=== PATIENT | male | born 1980 | race Caucasian/White ===

== ENCOUNTER → 2016-11-06 | Outpatient (CLI) | payer OTHER ==
[~2016-11-06] MED LIST: CLAR1TAB2 PO; GABA300C3 PO; LIDO5DIS36 TD; MELO7.5T6 PO; MULT1CHW26 PO
--- NOTE | 2016-11-10 01:51 | ECWPNPC ---
PATIENT NAME: KELLEE DOLAN : 1980 GENDER: MALE VISIT DATE: 11/06/2016 DISCHARGE DATE: 11/06/16 1523 VISIT LOCKED DATE TIME: PHYSICIAN: KINGSLEY COELLO RESOURCE: KINGSLEY COELLO REASON FOR APPOINTMENT 1. SPINE HISTORY OF PRESENT ILLNESS HISTORY OF PRESENT ILLNESS: HERE FOR ROUTINE F/U AND MANAGEMENT OF CHRONIC LEFT LOW BACK PAIN.RATING PAIN VAS 0/10.ABLE TO CONTINUE WITH CROSS FIT EXCERSISE.DESCRIBES PAIN INTERMITTENT SORENESS AND SHOOTING PAIN.PAIN IS AGGREVATED BY PROLONGED SITTING.PAIN RELIEVED BY STRETCHING SND REST.CURRENTLY TAKING MELOXICAM 7.5MG AND GABAPENTIN 300MG AT HS. FALL RISK SCREENING: SCREENING :NO FALLS IN THE PAST YEAR CURRENT MEDICATIONS TAKING MULTIVITAMIN 1 TABLET CHEWABLE 1 TAB(S) ORALLY DAILY TAKING CLARITIN 10 MG TABLET 1 TABLET ORALLY ONCE A DAY TAKING ZOLOFT 75 MG TABLET 1 TABLET ORALLY ONCE A DAY TAKING HYDROXYZINE HCL 10 MG TABLET ORALLY AT BEDTIME TAKING GABAPENTIN 300 MG CAPSULE 1 CAPSULE ORALLY QHS TAKING MELOXICAM 7.5 MG TABLET 1 TABLET ORALLY ONCE A DAY NOT-TAKING CITRACAL + D 250-62.5 MG-UNIT TABLET 1 TABLET ORALLY DAILY NOT-TAKING NEXIUM 40 MG CAPSULE DELAYED RELEASE 1 CAPSULE ORALLY ONCE A DAY MEDICATION LIST REVIEWED AND RECONCILED WITH THE PATIENT PAST MEDICAL HISTORY GERD LOW BACK PAIN ALLERGIES HAY FEVER SOCIAL HISTORY GENERAL: PAIN CLINIC PFS, CLERGY, PUBLIC HEALTH REFERRALS CLERGY REFERRAL NEEDED?NO WAS THE PROVIDER NOTIFIED OF ANY PERTINENT INFO?NO PFS REFERRAL NEEDED?NO PUBLIC HEALTH REFERRAL NEEDED?NO PATIENT: ____. REVIEW OF SYSTEMS CONSTITUTIONAL: ANY CHANGE IN YOUR MEDICAL CONDITION? NO . CHILLS NO . FEVER NO . INFECTION: DO YOU HAVE NEW INFECTIONS? NO . DO YOU HAVE HISTORY OF MRSA? NO . MUSCULOSKELETAL: ANY NEW PATTERNS OF PAIN OR NUMBNESS? NO . GASTROENTEROLOGY: ANY NEW CHANGE IN BOWEL CONTROL? NO . GENITOURINARY: ANY NEW CHANGE IN BLADDER CONTROL? NO . IS THERE A CHANCE YOU COULD BE ? NO . HEMATOLOGY/LYMPH: DO YOU TAKE ANY BLOOD THINNERS? (FOR EXAMPLE- COUMADIN, PLAVIX, AGGRENOX, PLATEL, PRADAXA, OR XARELTO) NO . WHEN WAS YOUR LAST DOSE? DATE: TIME: . NEUROLOGY: HAVE YOU FALLEN IN THE PAST 6 MONTHS? NO . ANY NEW EXTREMITY NUMBNESS OR WEAKNESS? NO . CARDIOLOGY: DO YOU HAVE A PACEMAKER OR DEFIBRILLATOR? NO . RESPIRATORY: HAVE YOU BEEN SICK IN THE PAST WEEK? NO . FEVER NO . FLU LIKE SYMPTOMS? NO . COUGH NO . INTEGUMENTARY: DO YOU HAVE ANY RASHES OR OPEN SORES? NO . ALLERGIC/IMMUNO: ARE YOU ALLERGIC TO SHELLFISH OR IV DYE? NO . ANY NEW ALLERGIES? NO . PSYCHIATRIC: DO YOU HAVE THOUGHTS OF HURTING YOURSELF OR SOMEONE ELSE? NO . ARE YOU ABUSED, NEGLECTED, OR IN AN UNSAFE ENVIRONMENT? NO . ENDOCRINOLOGY: ARE YOU DIABETIC? NO . OTHER: DO YOU NEED ANY PRESCRIPTIONS? NO . IF YES, PLEASE LIST: ____ . ANY NEW PROBLEMS WITH YOUR MEDICATIONS? NO . WHEN DID YOU LAST EAT? ____ . WHEN DID YOU LAST DRINK? ____ . WHAT DID YOU LAST DRINK? ____ . NAME OF PERSON DRIVING YOU HOME? ____ . DO YOU HAVE ANY OTHER QUESTIONS OR CONCERNS NO . REVIEWED BY: PROVIDER: KINGSLEY BERNAL . VITAL SIGNS WT 198 LBS, HT 70 IN, BMI 28.41 INDEX, BP 132/75 MM HG, HR 61 /MIN, RR 16 /MIN, TEMP 99.6 F, OXYGEN SAT % 94%, NA INITIALS SC14:47. EXAMINATION GENERAL EXAMINATION: LUNGS:LUNG SOUNDS ARE CLEAR. HEART:HEART RATE REGULAR. MUSCULOSKELETAL:*, MUSCLE STRENGTH TESTING 5/5 BILATERAL LOWER EXTREMITIES., PALPATION: NEGATIVE FOR PAIN OVER L/S SPINE. NEGATIVE FOR PAIN OVER L/S PARSPINALS. DIAGNOSTIC: . ASSESSMENTS INTERVERTEBRAL DISC DISORDERS WITH RADICULOPATHY, LUMBOSACRAL REGION - M51.17 (PRIMARY) TREATMENT INTERVERTEBRAL DISC DISORDERS WITH RADICULOPATHY, LUMBOSACRAL REGION CONTINUE GABAPENTIN CAPSULE, 300 MG, 1 CAPSULE, ORALLY, QHS CONTINUE MELOXICAM TABLET, 7.5 MG, 1 TABLET, ORALLY, ONCE A DAY PROCEDURE CODES FA211 ESTABILISHED PATIENT [facility] CHARGE DISPOSITION & COMMUNICATION FOLLOW UP 2 MONTHS ELECTRONICALLY SIGNED BY DOLORES CHISHOLM ON 11/07/2016 AT 02:20 PM EDT DISCLAIMER : THIS IS A VISIT SUMMARY EXTRACTED FROM THE [employer] CHART. IT IS NOT A COPY OF THE [employer] PROGRESS NOTE. MTDD
== END ==
LOC: M PAIN 14:20
PROVIDERS: ATTEND Nurse Practitioner Family
DX: Z09 Encounter for follow-up examination after completed treatment for conditions other than malignant neoplasm (principal); G89.29 Other chronic pain; M51.17 Intervertebral disc disorders with radiculopathy, lumbosacral region; K21.9 Gastro-esophageal reflux disease without esophagitis; Z79.899 Other long term (current) drug therapy

== ENCOUNTER → 2017-01-04 | Outpatient (CLI) | payer OTHER ==
[~2017-01-04] MED LIST changes: +GABA-282 PO; -GABA300C3 PO
--- NOTE | 2017-01-05 01:16 | ECWPNPC ---
PATIENT NAME: KELLEE DOLAN : 1980 GENDER: MALE VISIT DATE: 01/04/2017 DISCHARGE DATE: 01/04/17 1143 VISIT LOCKED DATE TIME: PHYSICIAN: KINGSELY COELLO RESOURCE: KINGSLEY COELLO REASON FOR APPOINTMENT 1. LOW BACK HISTORY OF PRESENT ILLNESS HISTORY OF PRESENT ILLNESS: HERE FOR F/U AND MANAGEMENT OF CHRONIC LOW BACK PAIN AND LEFT LEG RADICULAR SYMPTOMS.PAIN IS BEGINING TO COME BACK.RATING PAIN VAS 4/10.RESPONDED WELL TO LESI IN PAST. PAIN THE PATIENT DESCRIBES THE PAIN... FALL RISK SCREENING: SCREENING :NO FALLS IN THE PAST YEAR CURRENT MEDICATIONS TAKING MULTIVITAMIN 1 TABLET CHEWABLE 1 TAB(S) ORALLY DAILY TAKING CLARITIN 10 MG TABLET 1 TABLET ORALLY ONCE A DAY TAKING ZOLOFT 75 MG TABLET 1 TABLET ORALLY ONCE A DAY TAKING HYDROXYZINE HCL 10 MG TABLET ORALLY AT BEDTIME TAKING GABAPENTIN 300 MG CAPSULE 1 CAPSULE ORALLY QHS TAKING MELOXICAM 7.5 MG TABLET 1 TABLET ORALLY ONCE A DAY NOT-TAKING CITRACAL + D 250-62.5 MG-UNIT TABLET 1 TABLET ORALLY DAILY NOT-TAKING NEXIUM 40 MG CAPSULE DELAYED RELEASE 1 CAPSULE ORALLY ONCE A DAY MEDICATION LIST REVIEWED AND RECONCILED WITH THE PATIENT PAST MEDICAL HISTORY GERD LOW BACK PAIN ALLERGIES HAY FEVER SURGICAL HISTORY DENIES PAST SURGICAL HISTORY HOSPITALIZATION/MAJOR DIAGNOSTIC PROCEDURE CHICKEN BONE STUCK IN PHARYNX 2015 REVIEW OF SYSTEMS CONSTITUTIONAL: ANY CHANGE IN YOUR MEDICAL CONDITION? NO . CHILLS NO . FEVER NO . INFECTION: DO YOU HAVE NEW INFECTIONS? NO . DO YOU HAVE HISTORY OF MRSA? NO . MUSCULOSKELETAL: ANY NEW PATTERNS OF PAIN OR NUMBNESS? YES, INCREASING IN INTENSITY. PT STATES HE IS LEAVING IN MARCH, WOULD LIKE ANOTHER INJECTION BEFORE LEAVING . GASTROENTEROLOGY: ANY NEW CHANGE IN BOWEL CONTROL? NO . GENITOURINARY: ANY NEW CHANGE IN BLADDER CONTROL? NO . IS THERE A CHANCE YOU COULD BE ? NO . HEMATOLOGY/LYMPH: DO YOU TAKE ANY BLOOD THINNERS? (FOR EXAMPLE- COUMADIN, PLAVIX, AGGRENOX, PLATEL, PRADAXA, OR XARELTO) NO . WHEN WAS YOUR LAST DOSE? DATE: TIME: . NEUROLOGY: HAVE YOU FALLEN IN THE PAST 6 MONTHS? NO . ANY NEW EXTREMITY NUMBNESS OR WEAKNESS? NO . CARDIOLOGY: DO YOU HAVE A PACEMAKER OR DEFIBRILLATOR? NO . RESPIRATORY: HAVE YOU BEEN SICK IN THE PAST WEEK? NO . FEVER NO . FLU LIKE SYMPTOMS? NO . COUGH NO . INTEGUMENTARY: DO YOU HAVE ANY RASHES OR OPEN SORES? NO . ALLERGIC/IMMUNO: ARE YOU ALLERGIC TO SHELLFISH OR IV DYE? NO . ANY NEW ALLERGIES? NO . PSYCHIATRIC: DO YOU HAVE THOUGHTS OF HURTING YOURSELF OR SOMEONE ELSE? NO . ARE YOU ABUSED, NEGLECTED, OR IN AN UNSAFE ENVIRONMENT? NO . ENDOCRINOLOGY: ARE YOU DIABETIC? NO . OTHER: DO YOU NEED ANY PRESCRIPTIONS? NO . IF YES, PLEASE LIST: ____ . ANY NEW PROBLEMS WITH YOUR MEDICATIONS? NO . WHEN DID YOU LAST EAT? ____ . WHEN DID YOU LAST DRINK? ____ . WHAT DID YOU LAST DRINK? ____ . NAME OF PERSON DRIVING YOU HOME? ____ . DO YOU HAVE ANY OTHER QUESTIONS OR CONCERNS NO . REVIEWED BY: PROVIDER: KINGSLEY BERNAL . VITAL SIGNS WT 199.0 LBS, HT 70 IN, BMI 28.55 INDEX, BP 156/84 MM HG, HR 79 /MIN, RR 16 /MIN, TEMP 97.7 F, OXYGEN SAT % 96%, SAFE IN ENV? (Y/N) Y, NA INITIALS TL 1051, REVIEWED BY: EM. EXAMINATION GENERAL EXAMINATION: LUNGS:LUNG SOUNDS ARE CLEAR. HEART:HEART RATE REGULAR. MUSCULOSKELETAL:*, MUSCLE STRENGTH TESTING 5/5 BILATERAL LOWER EXTREMITIES., PALPATION: NEGATIVE FOR PAIN OVER L/S SPINE. NEGATIVE FOR PAIN OVER L/S PARASPINALS. DIAGNOSTIC: . ASSESSMENTS INTERVERTEBRAL DISC DISORDERS WITH RADICULOPATHY, LUMBOSACRAL REGION - M51.17 (PRIMARY) TREATMENT INTERVERTEBRAL DISC DISORDERS WITH RADICULOPATHY, LUMBOSACRAL REGION NOTES: I AM GOING TO REQUEST A LUMBAR INTERLAMINAR EPIDURAL STEROID INJECTION. PROCEDURE CODES FA211 ESTABILISHED PATIENT [facility] FACILITY CHARGE DISPOSITION & COMMUNICATION FOLLOW UP 2WK F/U (REASON: I AM GOING TO REQUEST A LUMBAR INTERLAMINAR EPIDURAL STEROID INJECTION) ELECTRONICALLY SIGNED BY DOLORES CHISHOLM ON 01/04/2017 AT 02:42 PM EDT DISCLAIMER : THIS IS A VISIT SUMMARY EXTRACTED FROM THE [facility] CHART. IT IS NOT A COPY OF THE [facility] PROGRESS NOTE. MICHAEL
== END ==
LOC: M PAIN 10:40
PROVIDERS: ATTEND Nurse Practitioner Family
DX: M51.17 Intervertebral disc disorders with radiculopathy, lumbosacral region (principal); Z79.899 Other long term (current) drug therapy; J30.9 Allergic rhinitis, unspecified

== ENCOUNTER → 2017-02-27 | Outpatient (CLI) | payer OTHER ==
[~2017-02-27] MED LIST changes: +ISOVUE-M 300 61% 15ML VIAL (Q9967) As Ordered ONE; -LIDO5DIS36 TD; +LIDO5DIS41 TD; +LIDOCAINE 1% SDV INJ 30 ML VIAL As Ordered ONE; -MELO7.5T6 PO; +MELO7.5T7 PO; +diazePAM 5 MG TAB As Ordered ONE; +methylPREDNISolone SUSP 40 MG/ML (DEPO-medrol) VIAL (J1030) As Ordered ONE; +oxyCODONE 5MG TAB As Ordered ONE
--- NOTE | 2017-02-27 17:44 | REP ---
FLUOROSCOPIC GUIDED SPINAL INJECTION: The films were reviewed with Dr. Seo. The patient has a history of low back pain. The portable C-ARM was provided in the OR by Dr. Diaz for fluoroscopic guidance. 3 intraoperative fluoroscopic spot films were obtained for needle placement verification for lumbar epidural injection. The films are on the PACS system and are available for review. 5 seconds of fluoroscopic time was utilized for this procedure. Reviewed by VINCENZO Woodard 02/28/2017 01:43 PEdited and Signed by Johnny Seo MD 03/01/2017 05:39 P
--- NOTE | 2017-03-15 00:12 | ECWPNPC ---
PATIENT NAME: KELLEE DOLAN : 1980 GENDER: MALE VISIT DATE: 02/27/2017 DISCHARGE DATE: 02/27/17 1336 VISIT LOCKED DATE TIME: PHYSICIAN: APOLONIA GIORDANO RESOURCE: APOLONAI GIORDANO REASON FOR APPOINTMENT 1. INTERLAMINAL EPIDURAL HISTORY OF PRESENT ILLNESS HISTORY OF PRESENT ILLNESS: PAIN THE PATIENT DESCRIBES THE PAIN... FALL RISK SCREENING: SCREENING :NO FALLS IN THE PAST YEAR CURRENT MEDICATIONS TAKING MULTIVITAMIN 1 TABLET CHEWABLE 1 TAB(S) ORALLY DAILY, NOTES: 0600 02/27/17 TAKING CLARITIN 10 MG TABLET 1 TABLET ORALLY ONCE A DAY, NOTES: 0600 02/27/17 TAKING ZOLOFT 75 MG TABLET 1 TABLET ORALLY ONCE A DAY, NOTES: YESTERDAY AM TAKING HYDROXYZINE HCL 10 MG TABLET ORALLY AT BEDTIME, NOTES: LAST NIGHT 9PM 02/26/17 TAKING GABAPENTIN 300 MG CAPSULE 1 CAPSULE ORALLY QHS, NOTES: 2 DAYS AGO TAKING MELOXICAM 7.5 MG TABLET 1 TABLET ORALLY ONCE A DAY, NOTES: NOT LATELY NOT-TAKING CITRACAL + D 250-62.5 MG-UNIT TABLET 1 TABLET ORALLY DAILY NOT-TAKING NEXIUM 40 MG CAPSULE DELAYED RELEASE 1 CAPSULE ORALLY ONCE A DAY MEDICATION LIST REVIEWED AND RECONCILED WITH THE PATIENT PAST MEDICAL HISTORY GERD LOW BACK PAIN ALLERGIES HAY FEVER REVIEW OF SYSTEMS REVIEWED BY: PROVIDER: . CONSTITUTIONAL: ANY CHANGE IN YOUR MEDICAL CONDITION? NO . CHILLS NO . FEVER NO . INFECTION: DO YOU HAVE NEW INFECTIONS? NO . DO YOU HAVE HISTORY OF MRSA? NO . MUSCULOSKELETAL: ANY NEW PATTERNS OF PAIN OR NUMBNESS? NO . GASTROENTEROLOGY: ANY NEW CHANGE IN BOWEL CONTROL? NO . GENITOURINARY: ANY NEW CHANGE IN BLADDER CONTROL? NO . IS THERE A CHANCE YOU COULD BE ? NO . HEMATOLOGY/LYMPH: DO YOU TAKE ANY BLOOD THINNERS? (FOR EXAMPLE- COUMADIN, PLAVIX, AGGRENOX, PLATEL, PRADAXA, OR XARELTO) NO . WHEN WAS YOUR LAST DOSE? DATE: TIME: . NEUROLOGY: HAVE YOU FALLEN IN THE PAST 6 MONTHS? NO . ANY NEW EXTREMITY NUMBNESS OR WEAKNESS? NO . CARDIOLOGY: DO YOU HAVE A PACEMAKER OR DEFIBRILLATOR? NO . RESPIRATORY: HAVE YOU BEEN SICK IN THE PAST WEEK? NO . FEVER NO . FLU LIKE SYMPTOMS? NO . COUGH NO . INTEGUMENTARY: DO YOU HAVE ANY RASHES OR OPEN SORES? NO . ALLERGIC/IMMUNO: ARE YOU ALLERGIC TO SHELLFISH OR IV DYE? NO . ANY NEW ALLERGIES? NO . PSYCHIATRIC: DO YOU HAVE THOUGHTS OF HURTING YOURSELF OR SOMEONE ELSE? NO . ARE YOU ABUSED, NEGLECTED, OR IN AN UNSAFE ENVIRONMENT? NO . ENDOCRINOLOGY: ARE YOU DIABETIC? NO . OTHER: DO YOU NEED ANY PRESCRIPTIONS? NO . IF YES, PLEASE LIST: ____ . ANY NEW PROBLEMS WITH YOUR MEDICATIONS? NO . WHEN DID YOU LAST EAT? YESTERDAY . WHEN DID YOU LAST DRINK? 0600 . WHAT DID YOU LAST DRINK? WATER . NAME OF PERSON DRIVING YOU HOME? IVONNE . DO YOU HAVE ANY OTHER QUESTIONS OR CONCERNS NO . VITAL SIGNS WT 192.0 LBS, HT 70 IN, BMI 27.55 INDEX, BP 124/69 MM HG, HR 63 /MIN, RR 16 /MIN, TEMP 97.5 F, OXYGEN SAT % 99%, NA INITIALS TL 1138. ASSESSMENTS INTERVERTEBRAL DISC DISORDERS WITH RADICULOPATHY, LUMBOSACRAL REGION - M51.17 (PRIMARY) TREATMENT OTHERS START OXYCODONE HCL TABLET, 5 MG, 1 TABLET, ORALLY, DAILY NEEDED FOR PAIN MDD1, 2 DAYS, 2, REFILLS 0 PROCEDURES PRE PROCEDURE DIAGNOSIS LUMBOSACRAL DISC DISORDER WITH RADICULOPATHY POST PROCEDURE DIAGNOSIS LUMBOSACRAL DISC DISORDER WITH RADICULOPATHY PROCEDURE LUMBAR EPIDURAL STEROID INJECTION UNDER FLUOROSCOPIC GUIDANCE SURGEON DR. APOLONIA GIORDANO PRODUCT SUPPORT SALES REPRESENTATIVE NONE ANESTHESIA LOCAL PRE PROCEDURE NOTE THE PATIENT HAS A HISTORY OF CHRONIC LOW BACK PAIN. I EVALUATE THE PATIENT AND REVIEWED THE CHART. I WENT OVER THE RISKS, ALTERNATIVES, AND BENEFITS ASSOCIATED WITH THIS PROCEDURE. THE PATIENT WOULD LIKE TO PROCEED AND GIVE CONSENT TO PERFORMED THE PROCEDURE. THE PATIENT DENIES UNEXPLAINABLE WEIGHT LOSS, FEVER, CHILLS, OR NEW CHANGES IN URINARY OR BOWEL CONTROL DESCRIPTION OF PROCEDURE THE PATIENT WAS BROUGHT TO THE PROCEDURE ROOM AND PLACED IN THE PRONE POSITION. THE LUMBOSACRAL AREA WAS CLEANED WITH BETADINE SOLUTION AND DRAPED ASEPTICALLY. THE PROCEDURE WAS DONE UNDER STERILE CONDITIONS. I CHECKED LATERALITY AND THE LEVEL WHERE THE PROCEDURE WAS GOING TO BE PERFORMED WITH THE PATIENT AND THE SUPPORTING STAFF AT THE MOMENT OF THE TIME OUT IN THE PROCEDURE ROOM. UNDER FLUOROSCOPIC GUIDANCE, THE TARGET POINT WAS SELECTED AT THE INTERLAMINAR LEVEL OF L5-S1. LIDOCAINE WAS USED TO NUMB THE SKIN AND THE SUBCUTANEOUS TISSUE BELOW IT. EPIDURAL TUOHY NEEDLE, 17-GAUGE, WAS ADVANCED UNDER FLUOROSCOPIC GUIDANCE AND FOLLOWING PATIENT FEEDBACK UNTIL THE EPIDURAL SPACE WAS REACHED, 7 CM DEEP INTO THE SKIN BY THE LOSS OF RESISTANCE TECHNIQUE. ISOVUE M DYE 30%, 0.25 ML, WAS INJECTED SHOWING ADEQUATE SPREAD OF THE DYE. THEN, A SOLUTION OF 3 ML OF NORMAL SALINE WITH DEPO-MEDROL 60 MG WAS INJECTED SLOWLY FOLLOWING PATIENT FEEDBACK. THERE WAS NO EVIDENCE OF BLOOD, PARESTHESIA OR CEREBROSPINAL FLUID DURING THE PROCEDURE. THE PATIENT WAS SENT TO THE RECOVERY ROOM. THE PATIENT WAS MOVING THE EXTREMITIES AND DOING WELL. THERE WAS NO COMPLICATION DURING THE PROCEDURE. FLUOROSCOPY TIME WAS 5 SECONDS. POST PROCEDURE NOTE THE PATIENT WILL BE SEEN IN A FOLLOW UP IN THE NEXT FEW WEEKS. INSTRUCTIONS WERE GIVEN, QUESTIONS WERE ANSWERED, AND THE PATIENT EXPRESSED UNDERSTANDING AND AGREES WITH THE PLAN. I, PRAKASH HANDY, DOCUMENTED THE ABOVE INFORMATION ACTING A SCRIBE FOR DR. GIORDANO. I HAVE REVIEWED THE ABOVE DOCUMENT, WRITTEN BY PRAKASH LEWIS AND I VERIFY THAT IT IS ACCURATE DIAGNOSTIC IMAGING [facility] FLUORO GUIDE SPINE INJECTION (PAIN)[id number] PROCEDURE CODES 90805 LUMBAR/SACRAL W/ IMAGING 6045F RADXPS IN END [id number] PXD DISPOSITION & COMMUNICATION FOLLOW UP 3 WEEKS ELECTRONICALLY SIGNED BY APOLONIA GIORDANO MD ON 03/13/2017 AT 11:12 PM EDT DISCLAIMER : THIS IS A VISIT SUMMARY EXTRACTED FROM THE [employer] CHART. IT IS NOT A COPY OF THE [employer] PROGRESS NOTE. MTDD
== END ==
LOC: M PAIN 11:40
PROVIDERS: ATTEND Anesthesiology
DX: G89.29 Other chronic pain (principal); M51.17 Intervertebral disc disorders with radiculopathy, lumbosacral region; K21.9 Gastro-esophageal reflux disease without esophagitis; J30.1 Allergic rhinitis due to pollen; Z79.899 Other long term (current) drug therapy
CPT/HCPCS: 62323; J1030; Q9967

== ENCOUNTER → 2017-03-05 | Outpatient (CLI) | payer OTHER ==
[~2017-03-05] MED LIST changes: -ISOVUE-M 300 61% 15ML VIAL (Q9967) As Ordered ONE; -LIDOCAINE 1% SDV INJ 30 ML VIAL As Ordered ONE; -diazePAM 5 MG TAB As Ordered ONE; -methylPREDNISolone SUSP 40 MG/ML (DEPO-medrol) VIAL (J1030) As Ordered ONE; -oxyCODONE 5MG TAB As Ordered ONE
--- NOTE | 2017-03-23 00:16 | ECWPNPC ---
PATIENT NAME: KELLEE DOLAN : 1980 GENDER: MALE VISIT DATE: 03/05/2017 DISCHARGE DATE: 03/05/17928 VISIT LOCKED DATE TIME: PHYSICIAN: KINGSLEY COELLO RESOURCE: KINGSLEY COELLO REASON FOR APPOINTMENT 1. POST PROCEDURE HISTORY OF PRESENT ILLNESS HISTORY OF PRESENT ILLNESS: HERE FOR POST PROCEDUE F/U.HAD LESI ON 02-27-17.REPORTING DECREASE IN SEVERITY OF LEFT LOW BACK PAIN AND LESS FREQUENT EPISODES OF LEFT LEG SYMPTOMS.RATING PAIN VAS 2/10.WILL BE CHANGING DUTY TO [facility]ITAL[facility] AND LEAVING AREA. FALL RISK SCREENING: SCREENING :NO FALLS IN THE PAST YEAR CURRENT MEDICATIONS TAKING MULTIVITAMIN 1 TABLET CHEWABLE 1 TAB(S) ORALLY DAILY TAKING CLARITIN 10 MG TABLET 1 TABLET ORALLY ONCE A DAY TAKING ZOLOFT 75 MG TABLET 1 TABLET ORALLY ONCE A DAY TAKING HYDROXYZINE HCL 10 MG TABLET ORALLY AT BEDTIME TAKING GABAPENTIN 300 MG CAPSULE 1 CAPSULE ORALLY QHS TAKING MELOXICAM 7.5 MG TABLET 1 TABLET ORALLY ONCE A DAY NOT-TAKING OXYCODONE HCL 5 MG TABLET 1 TABLET ORALLY DAILY NEEDED FOR PAIN MDD1 NOT-TAKING CITRACAL + D 250-62.5 MG-UNIT TABLET 1 TABLET ORALLY DAILY NOT-TAKING NEXIUM 40 MG CAPSULE DELAYED RELEASE 1 CAPSULE ORALLY ONCE A DAY MEDICATION LIST REVIEWED AND RECONCILED WITH THE PATIENT PAST MEDICAL HISTORY GERD LOW BACK PAIN ALLERGIES HAY FEVER SURGICAL HISTORY NO SURGICAL HISTORY DOCUMENTED. HOSPITALIZATION/MAJOR DIAGNOSTIC PROCEDURE CHICKEN BONE STUCK IN PHARYNX 2014 REVIEW OF SYSTEMS REVIEWED BY: PROVIDER: KINGSLEY COELLO [facility] . CONSTITUTIONAL: ANY CHANGE IN YOUR MEDICAL CONDITION? NO . CHILLS NO . FEVER NO . INFECTION: DO YOU HAVE NEW INFECTIONS? NO . DO YOU HAVE HISTORY OF MRSA? NO . MUSCULOSKELETAL: ANY NEW PATTERNS OF PAIN OR NUMBNESS? YES, PT STATES LESI 02/27/17, PRE PROCEDURE PAIN WAS 6/10, POST PROCEDURE PAIN WAS 0/10, SLOWLY CREEPING TO 2/10 TODAY . GASTROENTEROLOGY: ANY NEW CHANGE IN BOWEL CONTROL? NO . GENITOURINARY: ANY NEW CHANGE IN BLADDER CONTROL? NO . IS THERE A CHANCE YOU COULD BE ? NO . HEMATOLOGY/LYMPH: DO YOU TAKE ANY BLOOD THINNERS? (FOR EXAMPLE- COUMADIN, PLAVIX, AGGRENOX, PLATEL, PRADAXA, OR XARELTO) NO . WHEN WAS YOUR LAST DOSE? DATE: TIME: . NEUROLOGY: HAVE YOU FALLEN IN THE PAST 6 MONTHS? NO . ANY NEW EXTREMITY NUMBNESS OR WEAKNESS? NO . CARDIOLOGY: DO YOU HAVE A PACEMAKER OR DEFIBRILLATOR? NO . RESPIRATORY: HAVE YOU BEEN SICK IN THE PAST WEEK? NO . FEVER NO . FLU LIKE SYMPTOMS? NO . COUGH NO . INTEGUMENTARY: DO YOU HAVE ANY RASHES OR OPEN SORES? NO . ALLERGIC/IMMUNO: ARE YOU ALLERGIC TO SHELLFISH OR IV DYE? NO . ANY NEW ALLERGIES? NO . PSYCHIATRIC: DO YOU HAVE THOUGHTS OF HURTING YOURSELF OR SOMEONE ELSE? NO . ARE YOU ABUSED, NEGLECTED, OR IN AN UNSAFE ENVIRONMENT? NO . ENDOCRINOLOGY: ARE YOU DIABETIC? NO . OTHER: DO YOU NEED ANY PRESCRIPTIONS? NO . IF YES, PLEASE LIST: ____ . ANY NEW PROBLEMS WITH YOUR MEDICATIONS? NO . WHEN DID YOU LAST EAT? ____ . WHEN DID YOU LAST DRINK? ____ . WHAT DID YOU LAST DRINK? ____ . NAME OF PERSON DRIVING YOU HOME? ____ . DO YOU HAVE ANY OTHER QUESTIONS OR CONCERNS NO . VITAL SIGNS WT 192.0 LBS, HT 70 IN, BMI 27.55 INDEX, BP 140/79 MM HG, HR 79 /MIN, RR 16 /MIN, TEMP 97.4 F, OXYGEN SAT % 98%, SAFE IN ENV? (Y/N) Y, NA INITIALS [id number], REVIEWED BY: RHONA. EXAMINATION GENERAL EXAMINATION: LUNGS:LUNG SOUNDS ARE CLEAR. HEART:HEART RATE REGULAR. MUSCULOSKELETAL:*, MUSCLE STRENGTH TESTING 5/5 BILATERAL LOWER EXTREMITIES., PALPATION: NEGATIVE FOR PAIN OVER L/S SPINE. NEGATIVE FOR PAIN OVER L/S PARASPINALS. DIAGNOSTIC: . ASSESSMENTS INTERVERTEBRAL DISC DISORDERS WITH RADICULOPATHY, LUMBOSACRAL REGION - M51.17 (PRIMARY) PROCEDURE CODES FA211 ESTABILISHED PATIENT [facility] FACILITY CHARGE DISPOSITION & COMMUNICATION FOLLOW UP NO F/U.PT PCS ELECTRONICALLY SIGNED BY DOLORES CHISHOLM ON 03/22/2017 AT 06:38 PM EDT DISCLAIMER : THIS IS A VISIT SUMMARY EXTRACTED FROM THE [employer] CHART. IT IS NOT A COPY OF THE [employer] PROGRESS NOTE. MTDD
== END ==
LOC: M PAIN 09:00
PROVIDERS: ATTEND Nurse Practitioner Family
DX: M51.17 Intervertebral disc disorders with radiculopathy, lumbosacral region (principal); Z79.1 Long term (current) use of non-steroidal anti-inflammatories (NSAID); J30.9 Allergic rhinitis, unspecified; Z79.899 Other long term (current) drug therapy